=== PATIENT | female | born 1990 | race African-American/Black ===

== ENCOUNTER 2018-12-04 11:29 | Emergency (ER) | payer OTHER ==
[~2018-12-04] VITALS: Ht 160 cm; Wt 70.4 kg
[2018-12-04 14:39] LABS: CHLAMYDIA DNA AMPLIFICATION NEGATIVE (NEGATIVE); GC DNA AMPLIFICATION NEGATIVE (NEGATIVE)
[2018-12-04 16:41] LABS: HCG, SERUM QUALITATIVE NEGATIVE (NEGATIVE)
[2018-12-04 17:00] VITALS: BP 130/79
[2018-12-09 00:07] LABS: HSV-1 DNA Negative (Negative); HSV-2 DNA Negative (Negative)
== END 2018-12-04 17:01 | disposition home or self-care (01) ==
LOC: M ED 11:29
DX: N76.0 Acute vaginitis (principal); R30.0 Dysuria